=== PATIENT | female | born 1945 | race Asian ===

== ENCOUNTER 2020-05-09 08:29 | Day surgery (SDC) | payer OTHER, BC ==
[2020-05-06 10:58] LABS: Absolute Lymphocytes (CBC) 1.6 K/uL (0.7-4.9); Basophils % 0.2 % (0-1.3); Hematocrit 44.3 % (36.0-45.0); Lymphocytes % 21.3 % (15.3-44.8); MPV 7.5 fL (7.6-11.3); RBC Red Blood Cell Count 5.12 M/uL (3.86-4.86)
--- NOTE | 2020-05-06 11:12 | RAD REPORT ---
EXAM DESCRIPTION: RAD - Chest Pa And Lat (2 Views) - 05/06/2020 10:29 am CLINICAL HISTORY: pre op Chest pain. COMPARISON: No comparisons FINDINGS: The lungs are clear. The heart is normal in size. No displaced fractures. Chondroid lesion proximal shaft of the left humerus. IMPRESSION: No acute or concerning finding suspected.
[2020-05-06 11:33] LABS: Albumin 4.3 g/dL (3.4-5.0); Bilirubin Direct 0.2 mg/dL (0-0.2); Bilirubin Total 0.8 mg/dL (0.2-1.0); Potassium 3.8 mmol/L (3.5-5.1); Protein, Total 8.7 g/dL (6.4-8.2)
--- NOTE | 2020-05-08 11:15 | EKG ---
Test Date: 2020-05-06 Test Time: 10:09:37 Wide Area Network Engineer: [facility] MEASUREMENT RESULTS: Intervals: Rate: 57 NV: 148 QRSD: 80 QT: 452 QTc: 439 [place]: P: 72 NV: 148 QRS: 86 T: 81 INTERPRETIVE STATEMENTS: Sinus bradycardia Otherwise normal ECG No previous ECG available for comparison Electronically Signed On 05-08-20 11:13:47 CDT by Michael Naqvi
[2020-05-09] MEDS ORDERED: NA CHLORIDE 0.9% 1,000 ML ONE (09:22)
[2020-05-09] MEDS ORDERED: CEFOXITIN/SWI 1gm 1 GM/10 ML SYR ONE (09:22)
--- OUTSIDE RECORDS SUMMARY | 2020-05-09 09:37 | XMS REPORT | Continuity of Care Document ---
:1945 Author Organization [facility] t Address [facility] [address] [place] [address] Care Team Providers Name Role Phone Sawyer ARCOS Attending Clinician Doctor Unassigned, Name Attending Clinician Unavailable Joshua Sadler MD Attending Clinician Begum SHELTON, R Attending Clinician Pob, Lab Main Attending Clinician Unavailable Joshua Sadler MD Admitting Clinician Problems This patient has no known problems. Allergies, Adverse Reactions, Alerts This patient has no known allergies or adverse reactions. Medications This patient has no known medications. Procedures This patient has no known procedures. Encounters Start End Encounter Admission Attending Care Care Encounter Source Date/Time Date/Time Type Type Clinicians Facility Department ID 2020-04-04 2020-04-04 Emergency JL Jacques [id number] 10:08:00 12:28:00 Heber Tarsha [id number] [place] 4.2.7.2.686 [place] [id number] 2020-04-04 2020-04-04 Orders Doctor SOLIS [id number] 00:00:00 00:00:00 Only UnassMARLEEN prater [id number] Ola [facility] 4.2.7.2.686 [id number] 009 2019-09-24 2019-09-24 [facility] JL Sadler [id number] 07:52:00 09:48:00 Encounter Rodri Willingham 350.1.13.10 Joshua Alba 4.2.7.2.686 Surgical [id number] [place] 071 2019-09-24 2019-09-[facility] [id number] 09:02:00 09:25:00 Joel Thrasher Tarsha 350.1.13.10 [place] 4.2.7.2.686 Surgical [id number] [place] [address] 2019-08-27 2019-08-27 Hospital [facility] [id number] 06:24:00 09:00:00 Encounter Rodri Willingham 350.1.13.10 Joshua Alba 4.2.7.2.686 Surgical [id number] [place] [address] 2019-08-27 2019-08-27 Orders Doctor SOLIS [id number] 00:00:00 00:00:00 Only Unassigned, MARLEEN 350.1.13.10 Ola [facility] 4.2.7.2.686 [id number] 009 2019-08-18 2019-08-18 Plate Maker Nicole Price [facility] [id number] 11:44:15 11:59:15 Visit Lab Main Tarsha 350.1.13.10 [place] 4.2.7.2.686 Professio [id number] [address] 2019-08-18 2019-08-18 Orders Doctor SOLIS [id number] 00:00:00 00:00:00 Only UnassignedMARLEEN 350.1.13.10 Ola [facility] 4.2.7.2.686 [id number] [id number] Results This patient has no known results.
--- OUTSIDE RECORDS SUMMARY | 2020-05-09 09:37 | XMS REPORT | Summary of Care ---
:1945 Author Organization [facility] - Health Address [address] [place] [address] Care Team Providers Name Role Phone Nito Lentz MD Primary Care Provider [phone] Encounter Details Date Type Department Care Team Description 04/04/2020 Orders Only [facility] Doctor Unassigned, No [address] [facility] [place] [address] [address] [place] [address] Allergies Active Allergy Reactions Severity Noted Date Comments Codeine Rash Medium 08/29/2015 documented as of this encounter (statuses as of 04/04/2020) Medications Medication Sig Dispensed Refills Start Date End Date Status Insulin Glargine (LANTUS inject 26 Units 0 Active SOLOSTAR) 100 unit/mL (3 under the skin mL) injection daily. levothyroxine Take 112 mcg by 0 Active (SYNTHROID) 112 mcg mouth daily. tablet liothyronine (CYTOMEL) 5 Take 5 mcg by 0 Active mcg tablet mouth daily. calcium carbonate 600 mg Take 600 mg by 0 Active calcium (1,500 mg) mouth daily. tablet docosahexanoic acid/epa Take 1 capsule 0 Active (FISH OIL ORAL) by mouth daily. calcium Take 1 capsule 0 Activ e carbonate/vitamin D3 by mouth daily. (VITAMIN D-3 ORAL) atorvastatin 20 mg Take 20 mg by 0 Active tablet mouth at bedtime. Calcium Take 2,000 Units 0 Act jo ann Carbonate-Vitamin D3 by mouth daily. (OSTEO-PORETICAL) 600mg (1,000mg) -1,000 unit Tab multivit,iron,minerals/l Take 1 tablet by 0 Active utein (CENTRUM SILVER mouth daily. ULTRA WOMEN'S ORAL) multivitamin with Take 1 tablet by 0 Active minerals (HAIR,SKIN AND mouth daily. NAILS) tablet documented as of this encounter (statuses as of 04/04/2020) Active Problems Problem Noted Date Diabetes mellitus 08/23/2019 documented as of this encounter (statuses as of 04/04/2020) Social History Tobacco Use Types Packs/Day Years Used Date Never Smoker Smokeless Tobacco: Never Used Alcohol Use Drinks/Week oz/Week Comments No 0 Standard drinks or equivalent 0.0 Sex Assigned at Date Recorded Not on file documented as of this encounter Last Filed Vital Signs Not on filedocumented in this encounter Plan of Treatment Health Maintenance Due Date Last Done Comments HgA1C 10/30/1946 EYE EXAM 10/30/1953 LDL-C 10/30/1953 URINE MICROALBUMIN 10/30/1953 FOOT EXAM 10/30/1961 DTaP,Tdap,and Td Vaccines (1 - Tdap) 10/30/1962 Zoster Recombinant Vaccine (SHINGRIX) (1 10/30/1993 of 2) Medicare Wellness Visit 10/30/2008 PNEUMOCOCCAL VACCINES 65+ (1 of 1 - 10/30/2008 PPSV23) INFLUENZA VACCINE (#1) 2020 CREATININE (SERUM) 08/18/2020 08/18/2019, 08/09/2015 Depression Screening 09/24/2020 09/24/2019 Osteoporosis Screening 12/11/2028 12/11/2018 documented as of this encounter Implants Implanted Type Area Billiard Table Assembler Device Shelf Model / Serial Identifier Expiration / Lot Date Lens, Benny #[id number] - [id number] LENS Right: Benny 03/28/2024 [id number] / Implanted: Qty: 1 on 08/27/2019 by Rodri Sadler MD at [facility] 9 [id number] / NA Lens, Benny #[id number] - [id number] LENS Left: Eye Benny 03/28/2024 [id number] / Implanted: Qty: 1 on 09/24/2019 by Rodri Sadler MD at [facility] 7 [id number] / NA documented as of this encounter Procedures Procedure Name Priority Date/Time Associated Diagnosis Comme nts CONSENT/REFUSAL FOR Routine 04/04/2020 10:02 AM CDT DIAGNOSIS AND TREATMENT documented in this encounter Results Not on filedocumented in this encounter Insurance Payer Benefit Plan / Subscriber ID Effective Phone Address T ype Group Dates MEDICARE MEDICARE PART [id number] 2015-Pr [phone] [address]ON Schumacher ed[employer]re [employer] esent [phone] [place] [phone] FOR [id number] 2018-Pre Medic are LIFE sent Supplement COMMERCIAL COMMERCIAL [id number] 2016-Pre HMO /PPO/POS NON-CONTRACT NON-CONTRACT sent GENERIC GENERIC documented as of this encounter
--- OUTSIDE RECORDS SUMMARY | 2020-05-09 09:38 | XMS REPORT | Summary of Care ---
:1945 Author Organization [facility] Address [address] [place] [id number] Care Team Providers Name Role Phone Nito Lentz MD Primary Care Provider [phone] Reason for Referral MRI/CAT Scan (STAT) Status Reason Specialty Diagnoses / Referred By Referred To Procedures Contact Contact New Request Diagnostic Diagnoses Left lower quadrant abdominal pain Dontae Zamarripa, Radiology Procedures CT ABDOMEN PELVIS W WO CONTRAST [address] [place] [address] [address] [place] [address] Reason for Visit Reason Comments Flank Pain Auth/Cert Status Reason Specialty Diagnoses / Referred By Referred To Procedures Contact Contact Emergency Medicine Diagnoses LT SIDE FLANK/ABD PAIN [facility] Emergency Dept [address] [place] [id number] Fax: Encounter Details Date Type Department Care Team Description 04/04/2020 Emergency ADC-Emergency Dontae Zamarripa MD Left lower quadrant abdominal pain (Prim karen Dx); Department [address] [place] [address] Gallstones; [address] [place] [address] [address] Left upper quadrant pain; [place] [address] [place] [address] [phone] Allergies Active Allergy Reactions Severity Noted Date Comments Codeine Rash Medium 08/29/2015 documented as of this encounter (statuses as of 04/04/2020) Medications Medication Sig Dispensed Refills Start Date End Date Status Insulin Glargine inject 26 Units 0 Active (LANTUS SOLOSTAR) 100 under the skin unit/mL (3 mL) daily. injection levothyroxine Take 112 mcg by 0 Active (SYNTHROID) 112 mcg mouth daily. tablet liothyronine (CYTOMEL) Take 5 mcg by 0 Active 5 mcg tablet mouth daily. calcium carbonate 600 Take 600 mg by 0 Active mg calcium (1,500 mg) mouth daily. tablet docosahexanoic [...] daily. (OSTEO-PORETICAL) 600mg (1,000mg) -1,000 unit Tab multivit,iron,minerals/ Take 1 tablet by 0 Active lutein (CENTRUM SILVER mouth daily. ULTRA WOMEN'S ORAL) multivitamin with Take 1 tablet by 0 Active minerals (HAIR,SKIN AND mouth daily. NAILS) tablet dicyclomine (BENTYL) 10 Take 1 capsule 20 capsule 0 04/04/2020 Active mg capsuleIndications: by mouth 4 Left lower quadrant (four) times abdominal pain, daily. Gallstones, Left upper quadrant pain, Vascular calcification ondansetron 4 mg Take 1 tablet by 20 tablet 0 04/04/2020 Active disintegrating mouth every 4 tabletIndications: Left (four) hours as lower quadrant needed for abdominal pain, Nausea and Gallstones, Left upper Vomiting (N/V). quadrant pain, Vascular calcification Polyethylene Glycol Take 1 Packet by 10 Packet 0 04/04/2020 Active 3350 17 gram mouth daily. powderIndications: Left lower quadrant abdominal pain, Gallstones, Left upper quadrant pain, Vascular calcification dicyclomine (BENTYL) 10 Take 1 capsule 20 capsule 0 04/04/2020 Active mg capsuleIndications: by mouth 4 Left lower quadrant (four) times abdominal pain, daily. Gallstones, Left upper quadrant pain, Vascular calcification documented as of this encounter (statuses as of 04/04/2020) Active Problems Problem Noted Date Diabetes mellitus 08/23/2019 documented as of this encounter (statuses as of 04/04/2020) Social History Tobacco Use Types Packs/Day Years Used Date Never Smoker Smokeless Tobacco: Never Used Alcohol Use Drinks/Week oz/Week Comments No 0 Standard drinks or equivalent 0.0 Sex Assigned at Date Recorded Not on file COVID-19 Exposure Response Date Recorded In the last month, have you been in contact with No / Unsure 04/04/2020 10:03 AM CDT someone who was confirmed or suspected to have Coronavirus / COVID-19? documented as of this encounter Last Filed Vital Signs Vital Sign Reading Time Taken Comments Blood Pressure 139/71 04/04/2020 12:00 PM CDT Pulse 57 04/04/2020 12:00 PM CDT Temperature 36.7 C (98.1 F) 04/04/2020 10:14 AM CDT Respiratory Rate 16 04/04/2020 12:00 PM CDT Oxygen Saturation 96% 04/04/2020 12:00 PM CDT Inhaled Oxygen Concentration - - Weight 68 kg (150 lb) 04/04/2020 10:14 AM CDT Height - - Body Mass Index 29.29 09/20/2019 3:36 PM [employer] documented in this encounter Discharge Instructions InstructionsNeDontae bustamante MD - 04/04/2020 RETURN FOR ANY QUESTIONS OR CONCERNS Today you were seen by Dontae Zamarripa Jr., MD You were seen today for Chief Complaint Patient presents with Flank Pain Your ER diagnosis was ICD-10-CM ICD-9-CM 1. Left lower quadrant abdominal pain R10.32 789.04 2. Gallstones K80.20 574.20 3. Left upper quadrant pain R10.12 789.02 4. Vascular calcification I99.8 459.89 NO LIFE-THREATENING FINDINGS ON TODAY'S EXAM. YOUR PRESCRIPTIONS : Check out [employer] for medication discounts Medication List ASK your doctor about these medications atorvastatin 20 mg tablet Commonly known as: LIPITOR calcium carbonate 600 mg calcium (1,500 mg) tablet Commonly known as: OS-CAROLA CENTRUM SILVER ULTRA WOMEN'S ORAL FISH OIL ORAL Hair,Skin and Nails tablet Generic drug: multivitamin with minerals Insulin Glargine 100 unit/mL (3 mL) injection Commonly known as: LANTUS SOLOSTAR U-100 INSULIN levothyroxine 112 mcg tablet Commonly known as: SYNTHROID liothyronine 5 mcg tablet Commonly known as: CYTOMEL * VITAMIN D-3 ORAL * Osteo-Poretical 600mg (1,000mg) -1,000 unit Tab Generic drug: Calcium Carbonate-Vitamin D3 * This list has 2 medication(s) that are the same as other medications prescribed for you. Read thedirections carefully, and ask your doctor or other care provider to review them with you. ER precautions and follow up : 1. Return to ER if your symptoms should worsen or fail to improve within 72 hours. 2. The care provided in the emergency room was for acute problems only. 3. You should follow up with your primary care provider within 72 hours. 4. Fill and take all your medications as prescribed. 5. Make sure you are staying adequately hydrated. Busque attencion immediatamente si usted tiene los sitomas sigue, vuelve peor o si hay sitomas nuevas o para cualquiera preoccupacion incluyendo dolor del pecho, falta aire, se siente debile, mas fievre, mas dolor, nausea, vomitando, sangrando que no es normal, confusion, baja or pierdas conciencia. MAY FOLLOW-UP WITH A PROVIDER OF YOUR CHOICE, SUCH : 1. A PHYSICIAN OF YOUR CHOICE 2. [facility], . LOCATIONS IN [facility] 3. [facility], [address] [place] [address]; [phone] OR, IF YOU WISH TO FOLLOW-UP WITHIN THE [facility], MAY TRY THESE OPTIONS (CLINIC APPOINTMENTS AVAILABLE ON [id number] BASIS): 1. SCHEDULE AN APPOINTMENT ONLINE AT [email or web address] 2. OR CALL THE [facility] AT OR 3. OR CALL YOUR [facility] PHYSICIAN'S OFFICE DIRECTLY IF YOU ARE ALREADY AN ESTABLISHED [facility] PATIENT. [facility] RETURN TO WORK / SCHOOL EXCUSE Ari Leonard WAS SEEN IN THE ER AND DISCHARGED 04/04/2020 TODAY, 12:05 PM & May return to Work / School / Incarceration on X with activity as tolerated indicated below. ___The following limitations apply until pt is seen by Physician and cleared to return to normal activity. _X_ Off for two days and return to activity as tolerated at work or school ___ No Sports ___ No work ___ Do not return until fever free for 24 hours. ___ No school DONTAE ZAMARRIPA Jr., MD [facility] EMERGENCY DEPRTMENT [address] [place] [address] [place] [address] ### The patient may have been given Narcotic pain medications during their stay in the ED that may show up on a Drug Screen. The hospital discharge paper work will identify these medications. AttachmentsThe following attachments cannot be sent through Care Everywhere. Gallstones, Discharge Instructions (Hebrew)Abdominal Pain, Adult (Hebrew) documented in this encounter ED Notes Elizabeth Li RN - 04/04/2020 10:13 AM CDTPt reports that she has had left sided flank pain without vomiting, diarrhea, or dysuria. Denies fever. Hx DM, Hysteretomy ontae Zamarripa MD - 04/04/2020 10:05 AM CDT EMERGENCY DEPARTMENT ENCOUNTER [facility] Patient Name: Ari Leonard Date of : 1945 74 year old Exam Room:TX1/TX1 Primary Care Physician: Nito Lentz Pre- Hospital Patient Escorted by: Friend [6] Mode of Arrival: Personal means [1] EMS Treatment Prior to ED Arrival: [employer] treatment: Medication (comment) [employer]ETING [employer]ENT treatment comments: bone supplement Chief Complaint Chief Complaint Patient presents with Flank Pain HPI History provided by: Patient Abdominal Pain Pain location: LLQ and LUQ Pain quality: cramping Pain radiates to: R flank Pain severity: Moderate Duration: 5 days Progression: Worsening Chronicity: New Relieved by: Nothing Worsened by: Nothing Associated symptoms: no chest pain, no chills, no cough, no dysuria, no fatigue, no fever, no hematemesis, no hematochezia, no nausea, no shortness of breath, no vaginal bleeding, no vaginal discharge and no vomiting Past Medical History / Immunizations Past Medical History: Diagnosis Date Chronic back pain Diabetes mellitus Hx of thyroid cancer Hyperlipemia Tetanus received in last 5 years: Unknown Past Surgical History Past Surgical History: Procedure Laterality Date COLONOSCOPY N/A 08/31/2015 Surgeon: Joan Tejeda MD; [place] [facility] [place]STERECTOMY PHACOEMULSIFICATION OF CATARACT WITH INTRAOCULAR LENS IMPLANT Right 08/27/2019 Surgeon: Rodri Sadler MD; Location: [facility] OR [facility] PHACOEMULSIFICATION OF CATARACT WITH INTRAOCULAR LENS IMPLANT Left 09/24/2019 Surgeon: Rodri Sadler MD; Location: [facility] OR Location [facility] COLONOSCOPY W/BIOPSY SINGLE/MULTIPLE 08/31/2015 [facility] COLSC FLX W/RMVL OF TUMOR POLYP LESION SNARE TQ 08/31/2015 TOTAL THYROIDECTOMY 2012 Allergies Allergies Allergen Reactions Codeine Rash Social History Tobacco Use Never smoked or used smokeless tobacco. Alcohol Use No. Drug Use No. Review of Systems Review of Systems Constitutional: Negative. Negative for chills, fatigue, fever and unexpected weight change. HENT: Negative. Eyes: Negative. Negative for discharge and itching. Respiratory: Negative. Negative for cough, chest tightness, shortness of breath and wheezing. Cardiovascular: Negative. Negative for chest pain and palpitations. Gastrointestinal: Positive for abdominal pain. Negative for abdominal distention, hematemesis, hematochezia, nausea and vomiting. Genitourinary: Negative. Negative for dysuria, urgency, frequency, flank pain, vaginal bleeding andvaginal discharge. Musculoskeletal: Positive for back pain. Skin: Negative. Negative for color change, pallor and wound. Neurological: Negative. Negative for dizziness, syncope, light-headedness and headaches. Psychiatric/Behavioral: Negative. Negative for agitation and behavioral problems. All other systems reviewed and are negative. Endocrine: Endocrine negative Physical Exam BP (!) 157/74 | Pulse 66 | Temp 36.7 C (98.1 F) (Oral) | Resp 16 | Wt 68 kg (150 lb) | [id number]% | BMI 29.29 kg/m Physical Exam Vitals signs reviewed. Constitutional: Appearance: She is well-developed. HENT: Head: Normocephalic and atraumatic. Nose: Nose normal. Eyes: Conjunctiva/sclera: Conjunctivae normal. Neck: Musculoskeletal: Normal range of motion and neck supple. Trachea: No tracheal deviation. Cardiovascular: Rate and Rhythm: Normal rate and regular rhythm. Heart sounds: Normal heart sounds. No murmur. No friction rub. Pulmonary: Effort: Pulmonary effort is normal. No respiratory distress. Breath sounds: Normal breath sounds. No stridor. No wheezing or rales. Abdominal: General: Bowel sounds are normal. There is no distension. Palpations: Abdomen is soft. Tenderness: There is abdominal tenderness in the left upper quadrant and left lower quadrant. There is no guarding or rebound. Musculoskeletal: Normal range of motion. Right shoulder: She exhibits tenderness. Arms: Skin: General: Skin is warm and dry. Neurological: Mental Status: She is alert and oriented to person, place, and time. Cranial Nerves: No cranial nerve deficit. Sensory: No sensory deficit. Psychiatric: Behavior: Behavior normal. Thought Content: Thought content normal. Judgment: Judgment normal. Labs Recent Results (from the past 24 hour(s)) Complete Metabolic Panel Collection Time: 04/04/20 10:17 AM Result Value Ref Range NA 136 135 - 145 mmol/L K 4.0 3.5 - 5.0 mmol/L CL 92 (L) 98 - 108 mmol/L CO2 TOTAL 31 23 - 31 mmol/L AGAP 13 2 - 16 BUN 13 7 - 23 mg/dL GLUCOSE 235 (H) 70 - 110 mg/dL CREATININE 0.66 0.50 - 1.04 mg/dL TOTAL BILI 0.7 0.1 - 1.1 mg/dL CALCIUM 8.2 (L) 8.6 - 10.6 mg/dL T PROTEIN 8.2 6.3 - 8.2 g/dL ALBUMIN 5.0 3.5 - 5.0 g/dL ALK PHOS 49 34 - 122 U/L ALTv 28 5 - 35 U/L AST(SGOT) 33 13 - 40 U/L eGFR Calculation (Non-) 87.1 mL/min/1.73m2 eGFR Calculation () 105.5 mL/min/1.73m2 CBC with Differential Collection Time: 04/04/20 10:17 AM Result Value Ref Range WBC 9.18 4.30 - 11.10 10*3/L RBC 5.28 (H) 3.93 - 5.25 10*6/L HGB 15.3 (H) 11.6 - 15.0 g/dL HCT 45.2 35.7 - 45.2 % MCV 85.6 80.6 - 95.5 fL MCH 29.0 25.9 - 32.8 pg MCHC 33.8 31.6 - 35.1 g/dL RDW-SD 36.7 (L) 39.0 - 49.9 fL RDW-CV 11.8 (L) 12.0 - 15.5 % PLT 323 166 - 358 10*3/L MPV 9.4 (L) 9.5 - 12.9 fL NRBC/100 WBC 0.0 0.0 - 10.0 /100 WBCs NRBC x10^3 <0.01 10*3/L GRAN MAT (NEUT) % 73.3 % IMM GRAN % 0.10 % LYMPH % 20.0 % MONO % 5.2 % EOS % 1.1 % BASO % 0.3 % GRAN MAT x10^3(ANC) 6.72 1.88 - 7.09 10*3/uL IMM GRAN x10^3 <0.03 0.00 - 0.06 10*3/uL LYMPH x10^3 1.84 1.32 - 3.29 10*3/uL MONO x10^3 0.48 0.33 - 0.92 10*3/uL EOS x10^3 0.10 0.03 - 0.39 10*3/uL BASO x10^3 0.03 0.01 - 0.07 10*3/uL Lipase, Serum Collection Time: 04/04/20 10:17 AM Result Value Ref Range LIPASE 49 0 - 220 U/L Urinalysis Collection Time: 04/04/20 10:17 AM Result Value Ref Range APPEARANCE Hazy (A) Clear COLOR Yellow Yellow PH 6.0 4.8 - 8.0 SP GRAVITY 1.016 1.003 - 1.030 GLU U QUAL Normal Normal BLOOD Negative Negative KETONES Negative Negative PROTEIN Negative Negative UROBILIN Normal Normal BILIRUBIN Negative Negative NITRITE Negative Negative LEUK MARTY 250/uL (A) Negative RBC/HPF 9 (H) 0 - 3 HPF WBC/HPF 28 (H) 0 - 5 HPF BACTERIA Few (A) Negative MUCOUS Slight (A) Negative LPF SQ EPITH 1 HPF Troponin I Collection Time: 04/04/20 10:17 AM Result Value Ref Range TROPONIN I <0.012 <=0.034 ng/mL Imaging Hospital Encounter on 04/04/20 CT ABDOMEN PELVIS W WO CONTRAST Narrative ORDERING PHYSICIAN: DONTAE ZAMARRIPA ABDOMEN AND PELVIS CT WITHOUT AND WITH CONTRAST. DATE: 04/04/2020 10:30 AM CLINICAL INDICATIONS: Flank pain, stone disease suspected TECHNIQUE: Helical computed tomographic images of the abdomen and pelvis were performed without and with administration of nonionic intravenous contrast. The CT was obtained using ALARA guidelines, per department protocol. COMPARISON: None. FINDINGS: A tiny, calcified gallstone is suspected along the dependent portion of the gallbladder on series 2 image 33. No renal, ureteral or bladder stones are seen. There is no hydronephrosis. There is symmetric enhancement of both kidneys. Bilateral breast prostheses are seen. Liver and pancreas are normal. There is hypertrophy of both adrenal glands. A calcified granuloma seen in the spleen. Mild to moderate vascular calcification is seen. There are no dilated bowel loops. There is no bowel obstruction. Appendix is normal. There is mild stool in the colon. There is no free air, free fluid or adenopathy. Supracervical hysterectomy changes are seen. 2.6 x 2.3 cm soft tissue density focus is seen in the region of the left vulva on series 2 image 146. Mild to moderate vascular calcification is seen. Small vascular calcification is seen. Mild to moderate atelectasis is seen in the lung bases. Mild to moderate disc degenerative changes seen in the thoracic and lumbar spine. Impression 1. A tiny, calcified gallstone is suspected along the dependent portion of the gallbladder on series 2 image 33. 2. No renal, ureteral or bladder stones are seen. There is no hydronephrosis. There is symmetric enhancement of both kidneys. 3. There is hypertrophy of both adrenal glands. 4. Supracervical hysterectomy changes are seen. 2.6 x 2.3 cm soft tissue density focus is seen in the region of the left vulva, possibly a complex cyst. Please correlate with exam. RL: [id number] Orders and Treatments Orders Placed This Encounter Procedures CT ABDOMEN PELVIS W WO CONTRAST Complete Metabolic Panel CBC with Differential Lipase, Serum Urinalysis Troponin I Orders Placed This Encounter Medications sodium chloride (NS) injection 5 mL ketorolac (TORADOL) injection 15 mg iohexol (OMNIPAQUE 350 BULK-150 mL) injection 120 mL dicyclomine (BENTYL) 10 mg capsule ondansetron 4 mg disintegrating tablet Polyethylene Glycol 3350 17 gram powder Procedures EKG Time 1032 Rate 68 Switchback normal Intervals normal No acute ischemia Normal EKG Notes & MDM Patient was evaluated for an emergency medical condition related to Flank Pain . Differential diagnoses considered by presenting complaints but not limited to: Back pain Renal stone AAA Diverticulitis Assessment: The patient's workup does not demonstrate any acute process. She does have a moderate amount of stool. He placed on Bentyl and stool softeners area is to return for any questions History, physical exam findings, results of visit, differential diagnosis, medication regimens and plan of future care have been considered. Additional MDM may be found in the ED course. Differential diagnosis considered and final disposition made based on information gathered during evaluation and may not be completely ruled out or specifically listed. Vital signs were rechecked before final disposition. Diagnosis ICD-10-CM ICD-9-CM 1. Left lower quadrant abdominal pain R10.32 789.04 2. Gallstones K80.20 574.20 3. Left upper quadrant pain R10.12 789.02 4. Vascular calcification I99.8 459.89 Disposition & Follow Up ED Disposition ED Disposition Condition Comment Disch - Home Stable Patient's Medications START taking these medications DICYCLOMINE (BENTYL) 10 MG CAPSULE Take 1 capsule by mouth 4 (four) times daily. ONDANSETRON 4 MG DISINTEGRATING TABLET Take 1 tablet by mouth every 4 (four) hours as needed forNausea and Vomiting (N/V). POLYETHYLENE GLYCOL 3350 17 GRAM POWDER Take 1 Packet by mouth daily. CONTINUE taking these medications which have NOT CHANGED ATORVASTATIN 20 MG TABLET Take 20 mg by mouth at bedtime. CALCIUM CARBONATE 600 MG CALCIUM (1,500 MG) TABLET Take 600 mg by mouth daily. CALCIUM CARBONATE-VITAMIN D3 (OSTEO-PORETICAL) 600MG (1,000MG) -1,000 UNIT TAB Take 2,000 Units by mouth daily. CALCIUM CARBONATE/VITAMIN D3 (VITAMIN D-3 ORAL) Take 1 capsule by mouth daily. DOCOSAHEXANOIC ACID/EPA (FISH OIL ORAL) Take 1 capsule by mouth daily. INSULIN GLARGINE (LANTUS SOLOSTAR) 100 UNIT/ML (3 ML) INJECTION inject 26 Units under the skin daily. LEVOTHYROXINE (SYNTHROID) 112 MCG TABLET Take 112 mcg by mouth daily. LIOTHYRONINE (CYTOMEL) 5 MCG TABLET Take 5 mcg by mouth daily. MULTIVIT,IRON,MINERALS/LUTEIN (CENTRUM SILVER ULTRA WOMEN'S ORAL) Take 1 tablet by mouth daily. MULTIVITAMIN WITH MINERALS (HAIR,SKIN AND NAILS) TABLET Take 1 tablet by mouth daily. START taking Modified Medications as Prescribed No medications on file STOP taking these medications No medications on file Dontae Zamarripa Jr., MD Clinical [employer] [facility] Emergency Department documented in this encounter Miscellaneous Notes ED Nurse Note - Abby Boo RN - 04/04/2020 12:26 PM CDTPt given printed and verbal discharge instructions regarding gallstones, vascular calcifications enco uraged hydration, 3 Prescriptions provided, zofran, bentyl and miralax. Pt verbalized understanding of instructions, pt awake alert oriented, resp reg unlabored, skin w/d, color appropriate for race, moves all ext well,pt encouraged to follow up with gastroentology. Advised to seek medical attention for new/prolonged/worsening of symptoms, No adverse reaction to meds given in ER noted upon discharge PIV d'cd, dressing to site, catheter in tact. Awake, alert oriented, resp reg unlabored, skin w/d, pt leaving amb with steady gait, in no apparent distress, documented in this encounter Plan of Treatment Health [...] of this encounter Implants Implanted Type Area Package Worker Device Shelf Model / Serial Identifier Expiration / Lot Date Lens, Benny #[id number] - [id number] LENS Right: Benny 03/28/2024 [id number] / Implanted: Qty: 1 on 08/27/2019 by Rodri Sadler MD at [facility] 8 [id number] / NA Lens, Benny #[id number] - [id number] LENS Left: Eye Benny 03/28/2024 [id number] / Implanted: Qty: 1 on 09/24/2019 by Rodri Sadler MD at [facility] 2 [id number] / NA documented as of this encounter Procedures Procedure Name Priority Date/Time Associated Comments Diagnosis CT ABDOMEN PELVIS W STAT 04/04/2020 11:08 Left lower quadra nt Results for this WO CONTRAST AM CDT abdominal pain procedure are in the results section. URINALYSIS STAT 04/04/2020 10:17 Left lower quadrant Resu lts for this AM CDT abdominal pain procedure are in the results section. CBC WITH DIFF STAT 04/04/2020 10:17 Left lower quadrant Res ults for this AM CDT abdominal pain procedure are in the results section. COMP. METABOLIC STAT 04/04/2020 10:17 Left lower quadrant R esults for this PANEL (70063) AM CDT abdominal pain procedure ar e in the results section. TROPONIN I STAT Add-On 04/04/2020 10:17 Left lower quadrant Resu lts for this AM CDT abdominal pain procedure are in the results section. LIPASE STAT 04/04/2020 10:17 Left lower quadrant Resu lts for this AM CDT abdominal pain procedure are in the results section. NOTICE OF PRIVACY Routine 04/04/2020 10:03 PRACTICES AM CDT documented in this encounter Results CT ABDOMEN PELVIS W WO CONTRAST (04/04/2020 11:08 AM CDT) Specimen Impressions Performed At 1. A tiny, calcified gallstone is suspected along the dependent portion PACS/VR/DOSE of the gallbladder on series 2 image 33. 2. No renal, ureteral or bladder stones are seen. There is no hydronephrosis. There is symmetric enhan cement of both kidneys. 3. There is hypertrophy of both adrenal glands. 4. Supracervical hysterectomy changes ar e seen. 2.6 x 2.3 cm soft tissue density focus is seen in the region of the left vulva, possibly a complex cyst. Please correlate with exam. RL: [id number] Narrative Performed At ORDERING PHYSICIAN: DONTAE ZAMARRIPA PACS/VR/DOSE ABDOMEN AND PELVIS CT WITHOUT AND WITH C ONTRAST. DATE: 04/04/2020 10:30 AM CLINICAL INDICATIONS: Flank pain, ston e disease suspected TECHNIQUE: Helical computed tomographic images of th e abdomen and pelvis were performed without and with administ ration of nonionic intravenous contrast. The CT was obtained using ALAR A guidelines, per department protocol. COMPARISON: None. FINDINGS: A tiny, calcified gallstone is suspected along the dep endent portion of the gallbladder on series 2 image 33. No renal, ureteral o r bladder stones are seen. There is no hydronephrosis. There is symmetric enhancement of both kidneys. Bilateral breast prostheses are seen. Liver and pancre as are normal. There is hypertrophy of both adrenal glands. A calcified granuloma seen in the spleen. Mild to moderate vascular calcification is seen. There are no dilated bowel loops. There is no bowel obstruction. Ap pendix is normal. There is mild stool in the colon. There is no free air , free fluid or adenopathy. Supracervical hysterectomy changes are s een. 2.6 x 2.3 cm soft tissue density focus is seen in the region of t he left vulva on series 2 image 146. Mild to moderate vascular calcifica tion is seen. Small vascular calcification is seen. Mild to moderate atelectasis is seen in the lung bases. Mild to moderate disc degenerative changes seen in the th oracic and lumbar spine. Procedure Note [facility], Radiant Results Inft User - 2019 11:58 AM CDT ORDERING PHYSICIAN: DONTAE ZAMARRIPA ABDOMEN AND PELVIS CT WITHOUT AND WITH C ONTRAST. DATE: 04/04/2020 10:30 AM CLINICAL INDICATIONS: Flank pain, stone disease suspected TECHNIQUE: Helical computed tomographic images of the abdomen and pelvis were performed without and with administ ration of nonionic intravenous contrast. The CT was obtained using ALAR A guidelines, per department protocol. COMPARISON: None. FINDINGS: A tiny, calcified gallstone is suspected along the dependent portion of the gallbladder on series 2 image 33. No jennifer al, ureteral or bladder stones are seen. There is no hydronephrosis. There is symmetric enhancement of both kidneys. Bilateral breast prostheses are seen. Li nhung and pancreas are normal. There is hypertrophy of both adrenal glands. A calcified granuloma seen in the spleen. Mild to moderate vascular calcification is seen. There are no dilated bowel loops. There is no bowel obstruction. Ap pendix is normal. There is mild stool in the colon. There is no free air , free fluid or adenopathy. Supracervical hysterectomy changes are s een. 2.6 x 2.3 cm soft tissue density focus is seen in the region of t he left vulva on series 2 image 146. Mild to moderate vascular calcifica tion is seen. Small vascular calcification is seen. Mild to moderate atelectasis is seen in the lung bases. Mild to moderate disc degenerative changes seen in the th oracic and lumbar spine. IMPRESSION 1. A tiny, calcified gallstone is suspec zay along the dependent portion of the gallbladder on series 2 image 33. 2. No renal, ureteral or bladder stones are seen. There is no hydronephrosis. There is symmetric enhan cement of both kidneys. 3. There is hypertrophy of both adrenal glands. 4. Supracervical hysterectomy changes ar e seen. 2.6 x 2.3 cm soft tissue density focus is seen in the region of t he left vulva, possibly a complex cyst. Please correlate with exam. RL: [id number] Performing Organization Address City/State/Zipcode Phone Number PACS/VR/DOSE Troponin I (04/04/2020 10:17 AM CDT) Pathologist Sig nature TROPONIN I <0.012 <=0.034 ng/mL [facility] Specimen Blood - VENOUS Narrative Performed At Equal or Less than 0.034 ng/ml---Normal [facility] Note: Cardiac troponin begins to rise 3-4 hours after the onset of ischemia. Repeat in 4-6 hours if the sample was drawn within 3-4 hours of the onset of the symptom and found normal. Between 0.035 and 0.120 ng/mL--- Borderline. Questionable myocardial injury or necros is Note: Serial measurement may be necessary to confirm or exclude the diagnosis of myocardial injury or necrosis; Clinical correlation (symptoms, EKGs, imaging studies, and others) required; Repeat in 4-6 hours if clinically indicated. Equal or Higher than 0.121 ng/mL---Abnormal. Myocardial Injury or Necrosis Likely Biotin has been reported to cause a negative bias, interpret results relative to patient's use of biotin. Performing Organization Address City/[facility]/Zipcode Phone Number [facility] CLIA: [id number] [place] [address] Urinalysis (04/04/2020 10:17 AM CDT) Pathologist Sig nature APPEARANCE Hazy (A) Clear [facility] COLOR Yellow Yellow [facility] PH 6.0 4.8 - 8.0 [facility] SP GRAVITY 1.016 1.003 - 1.030 [facility] GLU U QUAL Normal Normal [facility] BLOOD Negative Negative [facility] KETONES Negative Negative [facility] PROTEIN Negative Negative [facility] UROBILIN Normal Normal [facility] BILIRUBIN Negative Negative [facility] NITRITE Negative Negative [facility] LEUK MARTY 250/uL (A) Negative [facility] RBC/HPF 9 (H) 0 - 3 HPF [facility] WBC/HPF 28 (H) 0 - 5 HPF [facility] BACTERIA Few (A) Negative [facility] MUCOUS Slight (A) Negative LPF [facility] SQ EPITH 1 HPF [facility] Specimen Urine - URINE, CLEAN CATCH Performing Organization Address [facility] Phone Number [facility] CLIA: [id number] [place] [address] LABORAT[address] [facility] Lipase, Serum (04/04/2020 10:17 AM CDT) Pathologist Sig nature LIPASE 49 0 - 220 U/L [facility] Specimen Blood - VENOUS Performing Organization Address City/[facility]/Zipcode Phone Number [facility] CLIA: [id number] [place], [place] [id number] LABORATORY [address] CBC with Differential (04/04/2020 10:17 AM CDT) Pathologist Sig nature WBC 9.18 4.30 - 11.10 [facility] 10*3/L [facility] RBC 5.28 (H) 3.93 - 5.25 [facility] 10*6/L [facility] HGB 15.3 (H) 11.6 - 15.0 [facility] g/dL [facility] HCT 45.2 35.7 - 45.2 % [facility] MCV 85.6 80.6 - 95.5 fL [facility] MCH 29.0 25.9 - 32.8 pg [facility] MCHC 33.8 31.6 - 35.1 [facility] g/dL [facility] RDW-SD 36.7 (L) 39.0 - 49.9 fL [facility] RDW-CV 11.8 (L) 12.0 - 15.5 % [facility] PLT 323 166 - 358 [facility] 10*3/L [facility] MPV 9.4 (L) 9.5 - 12.9 fL [facility] NRBC/100 WBC 0.0 0.0 - 10.0 /100 [facility] WBCs [facility] NRBC x10^3 <0.01 10*3/L [facility] GRAN MAT (NEUT) % 73.3 % [facility] IMM GRAN % 0.10 % [facility] LYMPH % 20.0 % [facility] MONO % 5.2 % [facility] EOS % 1.1 % [facility] BASO % 0.3 % [facility] GRAN MAT x10^3(ANC) 6.72 1.88 - 7.09 [facility] 10*3/uL [facility] IMM GRAN x10^3 <0.03 0.00 - 0.06 [facility] 10*3/uL [facility] LYMPH x10^3 1.84 1.32 - 3.29 [facility] 10*3/uL [facility] MONO x10^3 0.48 0.33 - 0.92 [facility] 10*3/uL [facility] EOS x10^3 0.10 0.03 - 0.39 [facility] 10*3/uL [facility] BASO x10^3 0.03 0.01 - 0.07 [facility] 10*3/uL [facility] Specimen Blood - VENOUS Performing Organization Address City/State/Zipcode Phone Number [facility] CLIA: [id number] [place] [address] Complete Metabolic Panel (04/04/2020 10:17 AM CDT) Pathologist Sig nature NA 136 135 - 145 [facility] mmol/L [facility] K 4.0 3.5 - 5.0 [facility] mmol/L [facility] CL 92 (L) 98 - 108 mmol/L [facility] CO2 TOTAL 31 23 - 31 mmol/L [facility] AGAP 13 2 - 16 [facility] BUN 13 7 - 23 mg/dL [facility] GLUCOSE 235 (H) 70 - 110 mg/dL [facility] CREATININE 0.66 0.50 - 1.04 [facility] mg/dL [facility] TOTAL BILI 0.7 0.1 - 1.1 mg/dL [facility] CALCIUM 8.2 (L) 8.6 - 10.6 [facility] mg/dL [facility] T PROTEIN 8.2 6.3 - 8.2 g/dL [facility] ALBUMIN 5.0 3.5 - 5.0 g/dL [facility] ALK PHOS 49 34 - 122 U/L [facility] ALTv 28 5 - 35 U/L [facility] AST(SGOT) 33 13 - 40 U/L [facility] eGFR Calculation 87.1 mL/min/1.73m2 [facility] ([facility] [place]) eGFR Calculation 105.5 mL/min/1.73m2 [facility] ([facility]) [facility] Specimen Blood - VENOUS Narrative Performed At Association of Glomerular Filtration Rate (GFR) [facility] and Staging of Kidney Disease* + + +- + | GFR (mL/min/1.73 m2) | With Kidney Damage | Without Kidney Damage + + +- + | >90 | Stage one | Normal + + +- + | 60-89 | Stage two | Decreased GFR + + +- + | 30-59 | Stage three | Stage three + + +- + | 15-29 | Stage four | Stage four + + +- + | <15 (or dialysis) | Stage five | Stage five + + +- + *Each stage assumes the associated GFR level has been in effect for at least three months. Stages 1 to 5, with or without kidney disease, indicate chronic kidney disease. Notes: Determination of stages one and two (with eGFR >59mL/min/1.73 m2) requires estimation of kidney damage for at least three months as defined by structural or functional abnormalities of the kidney, manifested by either: Pathological abnormalities or Markers of kidney damage (including abnormalities in the composition of the blood or urine or abnormalities in imaging tests). Performing Organization Address City/State/Zipcode Phone Number [facility] CLIA: [id number] [place] [address] documented in this encounter Visit Diagnoses Diagnosis Left lower quadrant abdominal pain - [facility] Gallstones Calculus of gallbladder without mention of cholecystitis or obstruction Left upper quadrant pain Abdominal pain, left upper quadrant Vascular calcification Other disorder of calcium metabolism documented in this encounter Administered Medications Medication Order MAR Action Action Date Dose Rate Site sodium chloride (NS) injection 5 mL 5 mL, Intravenous, PRN, Starting Mon 04/04 at 1016, Until Discontinued, Routine, IV line flushing Medication Order MAR Action Action Date Dose Rate Site iohexol (OMNIPAQUE 350 BULK-150 Given 04/04/2020 10:58 AM CDT 12 0 mL mL) injection 120 mL 120 mL, Intravenous, ONCE, 1 dose, Sat04/04/20 at 1115, Routine ketorolac (TORADOL) injection 15 mg Given 04/04/2020 10:35 AM CDT 15 mg 15 mg, Slow IV Push, ONCE, 1 dose, Sat04/04/20 at 1130, KAY, deep submergence vehicle crewmember approving Restricted medication: DONTAE ZAMARRIPA documented in this encounter Insurance Payer Benefit Plan / Subscriber ID Effective Phone Address T ype Group Dates MEDICARE MEDICARE PART [id number] 2015-Pr [phone] [address] ed[employer] A [employer] B esent [phone] [place]I IVAN [phone] FOR [id number] 2018-Pre Medic are LIFE sent Supplement COMMERCIAL COMMERCIAL [id number] 2016-Pre HMO /PPO/POS NON-CONTRACT NON-CONTRACT sent GENERIC GENERIC documented as of this encounter"
[2020-05-09] MEDS ORDERED: MIDAZOLAM HCL 2 MG/2 ML INJ ONE (10:36)
[2020-05-09] MEDS ORDERED: LIDOCAINE 1% MPF 5 ML VIAL ONE (10:47)
[2020-05-09] MEDS ORDERED: FENTANYL CITR 100 MCG/2 ML ONE (10:47)
[2020-05-09] MEDS ORDERED: ROCURONIUM 50 MG/5 ML VIAL IV ONE (10:47)
[2020-05-09] MEDS ORDERED: propofoL 200 MG/20 ML VIAL IV ONE (10:47)
[2020-05-09] MEDS ORDERED: NS 0.9% VIAL 10 ML ONE (11:34)
[2020-05-09] MEDS ORDERED: EPHEDRINE SULF 50 MG/ML VIAL ONE (11:34)
[2020-05-09] MEDS ORDERED: KETOROLAC 30 MG/ML INJ ONE (11:38)
[2020-05-09] MEDS ORDERED: NEOSTIGMINE 1 MG/ML -5 ML ONE (11:38)
[2020-05-09] MEDS ORDERED: GLYCOPYRROLATE 0.2 MG/ML SYR ONE (11:38)
[2020-05-09] MEDS ORDERED: ONDANSETRON 4 MG/2 ML VIAL ONE (11:38)
--- NOTE | 2020-05-09 11:42 | P.BOP ---
Preoperative diagnosis: Acute cholecystitis, symptomatic cholelithiasis Postoperative diagnosis: same Primary procedure: Laparoscopic cholecystectomy Digital Commentator: Siomara Zheng (Margarita) Estimated blood loss: <10cc Specimen: gb Findings: as above Anesthesia: General Complications: None Transferred to: Recovery Room Condition: Good
[2020-05-09 12:23] VITALS: O2SAT 100
--- NOTE | 2020-05-09 12:27 | OP ---
Date of Procedure: 05/09/2020 Surgeon: Bill Ramirez MD Preoperative Diagnosis: Acute cholecystitis, symptomatic cholelithiasis. Postoperative Diagnosis: Acute cholecystitis, symptomatic cholelithiasis. Procedure: Laparoscopic cholecystectomy. Anesthesia: General plus local. Specimen: Gallbladder. Indications: This is a case of a 74-year-old patient with the above diagnosis. Fully explained the benefits, alternatives, and risks of laparoscopic possible open cholecystectomy, which include, but n ot limited to infection, bleeding, damage to adjacent structures, anesthesia complication, choledocho lithiasis, bile leak, pancreatitis, VA, and even . She also understands this may not relieve he r symptoms. She might need more than one surgical intervention. She understood, signed a consent. Procedure In Detail: The patient was brought to the operating room, placed in supine position. Anes thesia was done without complication. Abdominal area was prepped and draped in usual sterile fashion . Marcaine 0.5% was injected for local anesthetic followed by sharp incision of the skin in the infr aumbilical region. Incision was carried down to fascia, which was opened under direct vision. Perit oneum was encountered, opened under direct vision. Vicryl #1 was placed inside the fascia. Mirian t rocar was carefully introduced. Pneumoperitoneum was obtained. I placed 3 more trocars 5 mm each on e of them in the right upper quadrant under direct visualization. After that I put a grasper in the fundus of the gallbladder, another grasper in the infundibulum, retracted the gallbladder in the infe rolateral fashion exposing the triangle of Calot obtaining critical view of safety. Cystic duct and cystic artery were clearly isolated free circumferentially and a connection between those and the gal lbladder was clearly identified. I proceeded to ligate those by using at least 3 clips proximal, 1 c lip distal, ligation in middle. Same was done with the cystic artery. No bile leak. No bleeding. The gallbladder was removed from liver using Bovie cauterizer and removed from abdominal cavity using EndoCatch through the umbilical incision. Area was inspected once again. Clips were intact. No bi le leak. No bleeding. At that moment, I proceeded to remove the trocars under direct vision. Defla zay pneumoperitoneum. Closed the fascia with #1 Vicryl, irrigated subcutaneous tissue, closed with 3 -0 chromic and then skin in a subcuticular fashion with 3-0 chromic and Steri-Strips on top. Sponge count and instrument counts were correct. Patient tolerated the procedure well. Patient was sent in this way to recovery in stable condition. NABIL/CINDY Voice ID: [id number] Report ID: [id number]
--- NOTE | 2020-05-09 12:30 | DS ---
Diagnosis: Acute cholecystitis, symptomatic cholelithiasis. Procedure: Laparoscopic cholecystectomy. Disposition: Home. Activity: As tolerated. No heavy lifting. Plan: Follow up in my office in 1 week. Call for appointment [phone]. Keep area dry for 48 hours, then may shower. Keep Steri-Strips intact. Medications: Include Ultracet q.4 hours p.r.n. pain, Bactrim DS p.o. b.i.d. NABIL/CINDY Voice ID: [id number] Report ID: [id number]
[2020-05-09] MEDS ORDERED: TRAMADOL 37.5mg/APAP 325mg PER TAB ONE (13:29)
[2020-05-09 13:55] VITALS: BP 165/60; TEMP 97
== END 2020-05-09 13:45 | disposition home or self-care (01) ==
LOC: DS 08:29
PROVIDERS: ATTEND Surgery
PROC: 0FT44ZZ Resection of Gallbladder, Percutaneous Endoscopic Approach (ICD-10-PCS; principal; 2020-05-09 11:00)
DX: K80.12 Calculus of gallbladder with acute and chronic cholecystitis without obstruction (principal); E11.9 Type 2 diabetes mellitus without complications; E03.9 Hypothyroidism, unspecified; I10 Essential (primary) hypertension; M54.5 Low back pain; G89.29 Other chronic pain; Z79.4 Long term (current) use of insulin; Z88.6 Allergy status to analgesic agent; Z20.828 Contact with and (suspected) exposure to other viral communicable diseases
CPT/HCPCS: 47562; 93005; 85025; 80048; 36415; 82150; 82947 ×2; 80076; 88304; 83690; 71046; U0002; J2704; J3010; J2710; J7030; J2405; J2250